=== PATIENT | female | born 1955 | race Caucasian/White ===

== ENCOUNTER 2019-08-16 19:40 | Emergency (ER) | payer MEDICARE ==
[~2019-08-16] VITALS: Ht 160 cm; Wt 68.0 kg
[2019-08-16] MEDS ORDERED: normal saline 1000ML IV soln IVB ONE (20:30)
[2019-08-16] MEDS ORDERED: diphenhydrAMINE 50 mg/ml inj IV ONE (20:30)
[2019-08-16] MEDS ORDERED: proCHLORperazine 10 MG/2 ml inj IV ONE (20:30)
[2019-08-16] MEDS ORDERED: ketorolac tromethamine 15mg/ml inj. IV ONE (21:10)
[2019-08-16 21:51] VITALS: BP 145/56
== END 2019-08-16 21:52 | disposition home or self-care (01) ==
LOC: ER 19:41
DX: G43.909 Migraine, unspecified, not intractable, without status migrainosus (principal); R11.2 Nausea with vomiting, unspecified; R06.02 Shortness of breath
CPT/HCPCS: 70450; 93005; 96361; 96374; 96375; 99284; J0780; J1200; J1885; J7030